=== PATIENT | female | born 1995 | race African-American/Black ===

== ENCOUNTER → 2019-06-19 | Outpatient (CLI) | payer OTHER | LOC: COL.RAD 09:26 | DX: G43.909 Migraine, unspecified, not intractable, without status migrainosus (principal); R25.1 Tremor, unspecified | CPT/HCPCS: A9585 ==

== ENCOUNTER → 2019-08-09 | Outpatient (CLI) | payer OTHER | LOC: COL.RAD 14:17 | DX: G43.009 Migraine without aura, not intractable, without status migrainosus (principal) ==